=== PATIENT | female | born 1995 | race Caucasian/White ===

== ENCOUNTER 2019-03-05 14:32 | Outpatient (CLI) | payer BC ==
[~2019-03-05] VITALS: Ht 162.6 cm; Wt 85.4 kg
[2019-03-05 14:44] VITALS: BP 116/76
[2019-03-05] MEDS ORDERED: PREN1TAB60 PO (14:44)
[2019-03-05 15:17] LABS: BASOPHILS # (AUTO) 0.03 x10^3/uL (0-0.1); BASOPHILS % (AUTO) 0 % (0-1); EOSINOPHILS # (AUTO) 0.05 x10^3/uL (0-0.4); EOSINOPHILS % (AUTO) 0 % (1-7); LYMPHOCYTES # (AUTO) 2.18 x10^3/uL (1-3.4); LYMPHOCYTES % (AUTO) 17 % (22-44); MD NO; MEAN CORPUSCULAR HEMOGLOBIN 31.4 pg (27.0-34.8); MEAN CORPUSCULAR HGB CONC 34.3 g/dL (32.4-35.8); MEAN CORPUSCULAR VOLUME 91.5 fL (80-100); MEAN PLATELET VOLUME 8.2 fL (7.4-10.4); MONOCYTES # (AUTO) 0.52 x10^3/uL (0.2-0.8); MONOCYTES % (AUTO) 4 % (2-9); NEUTROPHILS # (AUTO) 10.01 x10^3/uL (1.8-6.8); NEUTROPHILS % (AUTO) 78 % (42-75); PLATELET COUNT 335 x10^3/uL (130-400); RED BLOOD COUNT 3.99 x10^6/uL (3.82-5.3); RED CELL DISTRIBUTION WIDTH 12.9 % (9.6-15.2)
[2019-03-05 15:20] LABS: ALANINE AMINOTRANSFERASE 11 U/L (12-78); ALBUMIN 2.8 g/dL (3.4-5.0); ANION GAP 8 mmol/L (5-15); CALCIUM 8.6 mg/dL (8.5-10.1); CHLORIDE 108 mmol/L (98-107); CREATININE 0.65 mg/dL (0.55-1.02)
[2019-03-05 15:22] LABS: ALKALINE PHOSPHATASE 176 U/L (45-117); BILIRUBIN,TOTAL 0.5 mg/dL (0.2-1.0)
[2019-03-05 15:34] LABS: CREATININE,URINE RANDOM 44.4 mg/dL; MICROSCOPIC INDICATED
== END 2019-03-05 16:45 | disposition home or self-care (01) ==
LOC: LDOP 14:32
PROVIDERS: ATTEND Obstetrics & Gynecology
DX: O42.92 Full-term premature rupture of membranes, unspecified as to length of time between rupture and onset of labor (principal); Z3A.38 38 weeks gestation of pregnancy
CPT/HCPCS: 36415; 59025; 80053; 81001; 82570; 84112; 84156; 84550; 85025; 99211; G0463

== ENCOUNTER 2019-03-16 03:59 | Inpatient (IN) | payer BC ==
[~2019-03-16] VITALS: Ht 162.6 cm; Wt 84.5 kg
[~2019-03-16 03:59] MED LIST: PREN1TAB60 PO
[2019-03-16] MEDS ORDERED: OXYTOCIN 30U/ 0.9% NaCL 500ML 500 ML ONE (04:10)
[2019-03-16] MEDS ORDERED: NEWBORN KIT ONE (04:10)
[2019-03-16] MEDS: D5%-LACTATED RINGERS 1,000 ML IV SCH ×3 (04:28→20:28)
[2019-03-16] MEDS ORDERED: OXYTOCIN 30U/ 0.9% NaCL 500ML 500 ML IV ONE (04:28)
[2019-03-16] MEDS ORDERED: ONDANSETRON 2MG/ML, 2ML IVPush PRN ×2 (04:30→09:30)
[2019-03-16] MEDS ORDERED: FENTANYL PF 100 MCG/2ML IV PRN (04:30)
[2019-03-16] MEDS ORDERED: METOCLOPRAMIDE 5 MG/ML, 2ML IVPush PRN (04:30)
[2019-03-16] MEDS ORDERED: CALCIUM CARBONATE 500 MG TAB.CHEW PO PRN (04:30)
[2019-03-16] MEDS ORDERED: FENTANYL PF 100 MCG/2ML IVPush PRN (04:30)
[2019-03-16] MEDS ORDERED: TERBUTALINE 1 MG/ML, 1ML IVPush PRN (04:30)
[2019-03-16] MEDS ORDERED: SODIUM CITRATE/CITRIC ACID 15 ML UDC PO PRN (04:30)
[2019-03-16] MEDS ORDERED: LIDOCAINE 1%, 20ML ONE (04:31)
[2019-03-16] MEDS ORDERED: MISOPROSTOL 200 MCG TABLET ONE (04:31)
[2019-03-16 05:05] VITALS: BP 134/86
[2019-03-16] MEDS ORDERED: PLEASE ENTER HEIGHT AND WEIGHT MC SCH (05:30)
[2019-03-16 05:31] LABS: BASOPHILS # (AUTO) 0.05 x10^3/uL (0-0.1); BASOPHILS % (AUTO) 0 % (0-1); EOSINOPHILS # (AUTO) 0.01 x10^3/uL (0-0.4); EOSINOPHILS % (AUTO) 0 % (1-7); LYMPHOCYTES # (AUTO) 2.09 x10^3/uL (1-3.4); LYMPHOCYTES % (AUTO) 15 % (22-44); MD NO; MEAN CORPUSCULAR HEMOGLOBIN 31.5 pg (27.0-34.8); MEAN CORPUSCULAR HGB CONC 34.5 g/dL (32.4-35.8); MEAN CORPUSCULAR VOLUME 91.1 fL (80-100); MEAN PLATELET VOLUME 8.3 fL (7.4-10.4); MONOCYTES # (AUTO) 0.69 x10^3/uL (0.2-0.8); MONOCYTES % (AUTO) 5 % (2-9); NEUTROPHILS # (AUTO) 11.35 x10^3/uL (1.8-6.8); NEUTROPHILS % (AUTO) 80 % (42-75); PLATELET COUNT 321 x10^3/uL (130-400); RED BLOOD COUNT 3.86 x10^6/uL (3.82-5.3); RED CELL DISTRIBUTION WIDTH 13.5 % (9.6-15.2)
[2019-03-16] MEDS ORDERED: OXYTOCIN 30U/ 0.9% NaCL 500ML 500 ML IV PRN (06:35)
[2019-03-16] MEDS: LACTATED RINGERS 1,000 ML IV SCH ×6 (06:42→23:34)
[2019-03-16] MEDS: FENTANYL/BUPIV./NS/PF 250 ML EPIDCONT SCH (06:55)
[2019-03-16] MEDS ORDERED: FENTANYL PF 100 MCG/2ML ONE (07:24)
[2019-03-16] MEDS ORDERED: BUPIVACAINE 0.25% ONE (07:24)
[2019-03-16] MEDS ORDERED: FENTANYL PF 500 MCG, BUPIVACAINE/PF 0.5%, 30ML 62.5 ML in SODIUM CHLORIDE 0.9% 177.5 ML EPIDCONT SCH (07:30)
[2019-03-16] MEDS ORDERED: FENTANYL/BUPIV./NS/PF 250 ML EPIDCONT SCH (09:22)
[2019-03-16] MEDS ORDERED: EPHEDRINE 50 MG/ML, 1ML IVPush PRN (09:30)
[2019-03-16] MEDS ORDERED: LACTATED RINGERS 1,000 ML IVBOLUS PRN (09:30)
[2019-03-16 19:23] VITALS: BP 110/70
[2019-03-16] MEDS ORDERED: SODIUM CITRATE/CITRIC ACID 15 ML UDC ONE (20:02)
[2019-03-16] MEDS ORDERED: METOCLOPRAMIDE 5 MG/ML, 2ML ONE (20:03)
[2019-03-17] MEDS: OXYTOCIN 30U/ 0.9% NaCL 500ML 500 ML IV SCH ×2 (04:21→14:21)
[2019-03-17] MEDS: D5%-LACTATED RINGERS 1,000 ML IV SCH (04:28)
[2019-03-17] MEDS ORDERED: MISOPROSTOL 200 MCG TABLET PR PRN (04:30)
[2019-03-17] MEDS ORDERED: RHOGAM FROM BLOOD BANK 1 NOTE EA IM/IV ONE (04:30)
[2019-03-17] MEDS ORDERED: OXYcodone/APAP 5/325MG TABLET PO PRN (04:30)
[2019-03-17] MEDS ORDERED: METHYLERGONOVINE 0.2 MG/ML IM PRN (04:30)
[2019-03-17] MEDS ORDERED: MEASLES,MUMPS&RUBELLA VACC/PF 0.5 ML SQ PRN (04:30)
[2019-03-17] MEDS ORDERED: ACETAMINOPHEN 325 MG TABLET PO PRN (04:30)
[2019-03-17] MEDS ORDERED: CARBOPROST TROMETHAMINE 250 MCG/ML, 1ML IM PRN (04:30)
[2019-03-17] MEDS ORDERED: DIPH,PERTUSS(ACELL),TET VAC/PF NC IM-VACC PRN (04:30)
[2019-03-17] MEDS ORDERED: OXYTOCIN 30U/ 0.9% NaCL 500ML 500 ML ONE (04:34)
[2019-03-17] MEDS: LACTATED RINGERS 1,000 ML IV SCH (04:37)
[2019-03-17] MEDS: FENTANYL/BUPIV./NS/PF 250 ML EPIDCONT SCH (06:55)
[2019-03-17 07:45] VITALS: BP 110/72
[2019-03-17] MEDS: PRENATAL VIT/IRON/FA 1 EACH TABLET PO SCH ×2 (08:41→16:22)
[2019-03-17 12:09] LABS: MEAN CORPUSCULAR HEMOGLOBIN 30.8 pg (27.0-34.8); MEAN CORPUSCULAR HGB CONC 33.6 g/dL (32.4-35.8); MEAN CORPUSCULAR VOLUME 91.8 fL (80-100); MEAN PLATELET VOLUME 8.2 fL (7.4-10.4); PLATELET COUNT 279 x10^3/uL (130-400); RED BLOOD COUNT 3.26 x10^6/uL (3.82-5.3); RED CELL DISTRIBUTION WIDTH 13.5 % (9.6-15.2)
[2019-03-17 12:33] LABS: BASOPHILS % (AUTO) 0 % (0-1); EOSINOPHILS # (AUTO) 0.01 x10^3/uL (0-0.4); EOSINOPHILS % (AUTO) 0 % (1-7); LYMPHOCYTES # (AUTO) 1.41 x10^3/uL (1-3.4); LYMPHOCYTES % (AUTO) 7 % (22-44); MD SCAN; MONOCYTES # (AUTO) 1.12 x10^3/uL (0.2-0.8); MONOCYTES % (AUTO) 6 % (2-9); NEUTROPHILS # (AUTO) 17.77 x10^3/uL (1.8-6.8); NEUTROPHILS % (AUTO) 88 % (42-75)
[2019-03-17 14:04] VITALS: BP 113/70
[2019-03-17] MEDS: OXYcodone/APAP 5/325MG TABLET PO PRN (16:22)
[2019-03-17] MEDS: DOCUSATE 100 MG CAPSULE PO PRN (16:22)
[2019-03-17] MEDS: IBUPROFEN 600 MG TABLET PO PRN (16:22)
[2019-03-17 19:15] VITALS: BP_SYST 112; BP_SYST 121; BP_DIAS 72; BP_DIAS 82
[2019-03-18 00:04] VITALS: BP 109/74
[2019-03-18] MEDS: DOCUSATE 100 MG CAPSULE PO PRN ×2 (00:05→07:12)
[2019-03-18] MEDS: IBUPROFEN 600 MG TABLET PO PRN ×2 (00:05→07:12)
[2019-03-18] MEDS: OXYcodone/APAP 5/325MG TABLET PO PRN ×2 (00:05→07:12)
[2019-03-18] MEDS: OXYTOCIN 30U/ 0.9% NaCL 500ML 500 ML IV SCH ×2 (00:21→10:21)
[2019-03-18 07:10] VITALS: BP 112/76
[2019-03-18] MEDS: PRENATAL VIT/IRON/FA 1 EACH TABLET PO SCH (07:12)
[2019-03-18] MEDS ORDERED: IBUP-1222 PO (14:00)
== END 2019-03-18 15:18 | disposition home or self-care (01) | DRG 807 ==
LOC: LDOP 03:59 → LDIP 04:33 → 2NW 03-17 07:32
PROVIDERS: ADMIT Obstetrics & Gynecology; ATTEND Obstetrics & Gynecology
PROC: 10E0XZZ Delivery of Products of Conception, External Approach (ICD-10-PCS; principal; 2019-03-17)
PROC: 0KQM0ZZ Repair Perineum Muscle, Open Approach (ICD-10-PCS; 2019-03-17)
PROC: 3E0R3BZ Introduction of Anesthetic Agent into Spinal Canal, Percutaneous Approach (ICD-10-PCS; 2019-03-17)
PROC: 00HU33Z Insertion of Infusion Device into Spinal Canal, Percutaneous Approach (ICD-10-PCS; 2019-03-17)
DX: O66.0 Obstructed labor due to shoulder dystocia (principal); Z37.0 Single live birth; O70.1 Second degree perineal laceration during delivery; Z3A.39 39 weeks gestation of pregnancy
CPT/HCPCS: 36415; 82803; 85025; 86850; 86900; 89060; G0378; J3010; J3490; J2590; J7050; J7120; Q0114